=== PATIENT | female | born 1950 | race Two or more races ===

== ENCOUNTER 2018-04-18 13:15 | Emergency (ER) | payer MEDICARE ==
[~2018-04-18] VITALS: Ht 157.5 cm; Wt 77.1 kg
--- NOTE | 2018-04-18 13:30 | NUR ---
PT A/O X4. C/C BACK PAIN X 2 WEEKS RADIATES DOWN R LEG. DENIES TRAUMA. NEG DISTRESS. NEG SOB. VSS. STABLE GATE. SAFETY MEASURES IN PLACE.
[2018-04-18] MEDS ORDERED: LOVA40TA2 PO (13:35)
--- NOTE | 2018-04-18 13:39 | NUR ---
X RAY AT BEDSIDE
[2018-04-18] MEDS ORDERED: KETOROLAC TROMETHAMINE INJ 60 MG/2 ML VIAL IM ONE (14:00)
[2018-04-18] MEDS ORDERED: KETOROLAC TROMETHAMINE INJ 30 MG/ML VIAL ONE (14:03)
[2018-04-18 14:36] VITALS: BP 149/71
== END 2018-04-18 14:37 | disposition home or self-care (01) ==
LOC: ER 13:23
DX: M54.41 Lumbago with sciatica, right side (principal); E78.00 Pure hypercholesterolemia, unspecified
CPT/HCPCS: 72110; 96372; 99284; A4606; J1885; Z7610